=== PATIENT | female | born 1975 | race Caucasian/White ===

== ENCOUNTER 2023-06-21 12:33 | Emergency (ER) | payer OTHER, SELFPAY ==
[2023-06-21 12:42] VITALS: BP 120/89
[2023-06-21 13:02] LABS: Urine Albumin Trace (Neg - Trace); Urine Bilirubin 1+ (Negative); Urine Character Slightly Cloudy (Clear); Urine Color Yellow; Urine Glucose Negative (Negative); Urine Ketone Trace (Negative); Urine Leukocyte Negative (Negative); Urine Nitrite Negative (Negative); Urine Occult Blood Negative (Negative); Urine Urobilinogen Negative (Neg - 1+)
--- NOTE | 2023-06-21 13:26 | ED.GENMED ---
History of Present Illness
<Trina Walker PA-C - Last Filed: 06/22/23 16:52>
General
Chief Complaint: Flank Pain
Source: patient
Exam Limitations: none
Time Seen by Provider: 06/21/23 12:59
Nursing documentation reviewed up to this point in time: agreed with
Travel History
Have you had any contact with someone who has COVID-19?: No
Do you have any symptoms of coronavirus? Fever > 100 degrees, chills, cough, shortness of breath, sore throat, loss of taste or smell, muscle aches, or headache?: No
History of Present Illness
History of Present Illness:
Patient is a 47-year-old female with history of horseshoe kidney, kidney stones, diverticulitis, iron deficiency anemia presenting for evaluation of left lower back pain. Patient states symptoms have been present for the past few weeks with acute
worsening a few days ago. She describes pain as a constant pain in the left lower back without any radiation to abdomen or down leg. She is unsure if this may be related to kidney stone. She denies any fever, chills, urinary symptoms. She denies
any abdominal pain or vomiting. She denies any recent trauma or inciting injury.
She does, however, report intermittent chest discomfort and some lightheadedness a few days ago�which is since resolved. She denies any shortness of breath or tearing back pain.
Patient denies any numbness/tingling in lower extremities. She is denies any bowel or bladder incontinence.
Past History
<Trina Walker PA-C - Last Filed: 06/22/23 16:52>
Past History
ED Past Medical History: GERD and Other (Horseshoe kidney, IBS, kidney stones, Diverticulitis, Ulcers, Hiatel hernia)
ED Past Surgical History: Tonsilectomy and Urological
Social History
Tobacco: Non-smoker
Personal:
Living: with family
Employment: Employed
Review of Systems
<Trina Walker PA-C - Last Filed: 06/22/23 16:52>
Review of Systems
Allergies reviewed?: Yes
All Other Systems: ROS reviewed and negative except as documented in HPI and ROS
Phy Exam
<Trina Walker PA-C - Last Filed: 06/22/23 16:52>
Physical Exam
Physical Exam:
Vitals: Patient's vital signs are stable
General: Patient is well appearing, no acute distress
Skin: Warm and dry, no rashes or lesions
Head: Normocephalic, atraumatic
Eyes: Sclera nonicteric. EOMs intact. No nystagmus.
Cardiac: Regular rate and rhythm, no murmurs; no reproducible chest wall tenderness.
Pulm: Normal respiratory effort, no wheezes, rales, rhonchi heard on exam.
Abdomen: Abdomen soft, nontender in all 4 quadrants, no rebound tenderness or guarding, no CVA tenderness
Back: No reproducible point tenderness in lower back, no cervical spine or midline spinal tenderness, negative straight leg raise bilaterally
Extremities: No evidence of cyanosis or edema
Neuro: AAOx3. CN II-XII intact. No focal neurologic deficits.
Psychiatric: Normal affect.
Course
<Trina Walker PA-C - Last Filed: 06/22/23 16:52>
Orders/Labs/Results
Orders:
Orders
06/21/23 12:45
ECG [Electrocardiogram (*1)] Urgent
Reason for Study: Chest Pain
06/21/23 12:46
EKG- Treatment ONCE
06/21/23 12:50
Urinalysis Reflex To Culture Urgent
Date Specimen was Collected: 06/21/23
Time Specimen was Collected: 12:46
06/21/23 13:26
0.9% Sodium Chloride 1000 ml [Nss] 1,000 ml IV BOLUS
Ketorolac [Toradol] 15 mg IV NOW STA
06/21/23 13:27
Test Result ONCE
06/21/23 13:41
CT Abd/pel Without Iv Or Oral Urgent
Comment:
Reason For Exam: Left lower back pain, hx kidney stones / diverticu
06/21/23 13:49
HYDROmorphone [Dilaudid] 0.5 mg IV NOW STA
06/21/23 13:52
Complete Blood Count/With Diff Urgent
Comprehensive Metabolic Panel Urgent
HCG, Serum Qualitative Screen Urgent
Abnormal Lab Results
06/21/23 06/21/23
12:50 13:52
Hgb 9.8 L g/dL
(12.0-16.0)
Hct 31.6 L %
(37.0-47.0)
MCV 74.5 L fL
(81.0-99.0)
MCH 23.1 L pg
(27.0-31.0)
MCHC 31.0 L g/dL
(33.0-37.0)
RDW 15.3 H %
(11.5-14.5)
Urine Ketones Trace A
(Negative)
Urine Bilirubin 1+ A
(Negative)
06/21/23 13:52
06/21/23 13:52
Vital Signs
Initial and Last Documented VS:
Initial Vital Signs
Temp Pulse Resp BP Pulse Ox
98.2 F 99 18 120/89 99
06/21/23 12:42 06/21/23 12:42 06/21/23 12:42 06/21/23 12:42 06/21/23 12:42
Last Documented Vital Signs
Temp Pulse Resp BP Pulse Ox
98.2 F 99 18 120/89 99
06/21/23 12:42 06/21/23 12:42 06/21/23 12:42 06/21/23 12:42 06/21/23 12:42
<Durga Maza, DO - Last Filed: 06/21/23 14:20>
Orders/Labs/Results
Orders:
Orders
06/21/23 12:45
ECG [Electrocardiogram (*1)] Urgent
Reason for Study: Chest Pain
06/21/23 12:46
EKG- Treatment ONCE
06/21/23 12:50
Urinalysis Reflex To Culture Urgent
Date Specimen was Collected: 06/21/23
Time Specimen was Collected: 12:46
06/21/23 13:26
0.9% Sodium Chloride 1000 ml [Nss] 1,000 ml IV BOLUS
Ketorolac [Toradol] 15 mg IV NOW STA
06/21/23 13:27
Test Result ONCE
06/21/23 13:41
CT Abd/pel Without Iv Or Oral Urgent
Comment:
Reason For Exam: Left lower back pain, hx kidney stones / diverticu
06/21/23 13:49
HYDROmorphone [Dilaudid] 0.5 mg IV NOW STA
06/21/23 13:52
Complete Blood Count/With Diff Urgent
Comprehensive Metabolic Panel Urgent
HCG, Serum Qualitative Screen Urgent
Abnormal Lab Results
06/21/23 06/21/23
12:50 13:52
Hgb 9.8 L g/dL
(12.0-16.0)
Hct 31.6 L %
(37.0-47.0)
MCV 74.5 L fL
(81.0-99.0)
MCH 23.1 L pg
(27.0-31.0)
MCHC 31.0 L g/dL
(33.0-37.0)
RDW 15.3 H %
(11.5-14.5)
Urine Ketones Trace A
(Negative)
Urine Bilirubin 1+ A
(Negative)
06/21/23 13:52
06/21/23 13:52
Vital Signs
Initial and Last Documented VS:
Initial Vital Signs
Temp Pulse Resp BP Pulse Ox
98.2 F 99 18 120/89 99
06/21/23 12:42 06/21/23 12:42 06/21/23 12:42 06/21/23 12:42 06/21/23 12:42
Last Documented Vital Signs
Temp Pulse Resp BP Pulse Ox
98.2 F 99 18 120/89 99
06/21/23 12:42 06/21/23 12:42 06/21/23 12:42 06/21/23 12:42 06/21/23 12:42
<Trina Walker PA-C - Last Filed: 06/22/23 16:52>
MDM/Problems Addressed
Differential Diagnosis Includes:
Not limited to: Muscular strain, muscular spasm, nerve impingement, kidney stone, diverticulitis, pyelonephritis, UTI, zoster
MDM/Problems Addressed:
47 year old female with history as documented presented with left lower back pain worsening over the past few days. No associated fever or urinary symptoms. No recent trauma or injury. Vitals stable. Exam as above. Abdomen soft and nontender. There
is no evidence of rash across lower back. No reproducible point tenderness or CVA tenderness. Negative straight leg bilaterally. Will check labs, UA, non CT abdomen. Toradol and dilaudid for pain. Will reassess. EKG obtained in triage shows no signs
of ischemia. Very low suspicion for cardiac etiology.
Urine shows no signs of infection or blood in urine to further suggest kidney stone. Labs show findings consistent with iron efficiency anemia with hgb of 9.8. 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 No other lab
abnormalities.
CT shows no acute abnormalities. No evidence of obstructing kidney stone. There was found to be a cyst on the posterior left kidney, stable in size from prior studies. I do not suspect this to be contributing to patients symptoms. Patient will
follow-up with primary care for further monitoring.
Symptoms improved after pain medication. Workup here entirely negative. Stable for discharge with primary care follow-up- may require MRI of back for more in-depth evaluation. NSAIDS for pain. Return precautions discussed at length.Patient
comfortable with plan. All questions answered.
Chronic conditions affecting care:
History of kidney stones, horseshoe kidney
Acute Exacerbation and/or Progression of Chronic Illness:
N/A
<Trina Walker PA-C - Last Filed: 06/22/23 16:52>
*Radiology
Radiology exam reviewed: preliminary read by ED provider and radiology read reviewed
*Pulse Oximetry
Patient hypoxic: no
*EKG
Interpreted by ED Provider?: Yes
EKG Intrepretation Date: 06/21/23
Interpretation: normal
Comparison EKG: no comparison EKG present
Heart Rate: 85
Rate: normal
Rhythm: sinus
Ischemia: no ischemia
*Gun Repair Clerk Interpretation
Rate: Gun Repair Clerk- N/A
*Critical Care Note
Total Time (30-74mins, 75-104mins- exclusive of procedures): Not Applicable
Data Reviewed
Review of Other/Old Records Reveals: Labs, Records and Radiology Studies
Source: patient and previous hospital records
ED Attending Note
<Trina Walker PA-C - Last Filed: 06/22/23 16:52>
-
Portions of this chart may have been created with voice recognition software.� Occasional wrong word or��sound alike� substitutions may have occurred due to the inherent limitations of voice recognition software.
<Durga Maza DO - Last Filed: 06/21/23 14:20>
ED Attending Note
Patient seen and examined by attending physician: Yes
I performed the substantive portion of visit, reviewed & personally made and approve the management plan that is documented in note by myself or MASON.: Yes
ED Attending Note:
I have seen and evaluated the patient with a [id number] encounter. I have spoken to the advance practicer provider and involved in the medical history, the physical exam, medical decision making.
Evaluation and management service: agree unless noted differently below.
Results interpretation: agree unless noted differently below.
Focused HPI: 47-year-old female presenting with back and abdominal discomfort. She noted some chest discomfort a few days ago but that is since resolved. She is unsure if this could be kidney stone related.
Physical exam: Sitting in bed comfortably. Heart regular rate and rhythm. Abdomen soft and nontender
Medical Decision Making: Screening EKG nonischemic. Given her history of kidney stones, will obtain CT. Will provide pain medicine with Toradol and Dilaudid
Discharge Plan
Departure
Patient Disposition: Home (Routine Discharge)
Date of Disposition: 06/21/23
Time of Disposition: 15:27
Patient with high blood pressure during this ER visit?: No
Covid-19: Not Applicable
Discharge Problem:
Low back pain
Instructions: Low Back Pain (DC)
Prescriptions:
No Action
esomeprazole magnesium [Nexium] 20 MG capsule,delayed release(DR/EC)
20 mg PO DAILY
prednisone 20 MG tablet
40 mg PO DAILY Qty: 8 0RF
levofloxacin 500 mg tablet
500 mg PO DAILY 10 Days Qty: 10 0RF
metronidazole [Flagyl] 375 mg capsule
375 mg PO BID 14 Days Qty: 28 0RF
hydrocodone-acetaminophen 5-325 mg tablet
1 tab PO TID PRN (Reason: pain) Qty: 10 0RF
Referrals:
Urban Ojeda DO [Family Provider] - Follow up in 2-3 days
Activity Restrictions/Additional Instructions:
- Return to the emergency department with any high fevers, severe abdominal pain, intractable nausea/vomiting, worsening low back pain, weakness/numbness in lower extremities, bowel/bladder incontinence, chest pain, shortness of breath, worsening in
current symptoms, or any other concerns
-As discussed�there was no evidence of a kidney stone on your CT scan performed today. They did note a cyst on your left kidney which appears stable in size. You should continue to have this monitored.
-As discussed�your hemoglobin was 9.8 today. You should continue to have this monitored with your primary care provider to ensure values are trending upwards.
-You can take Motrin and/or Tylenol as needed for discomfort. Apply ice/heat as needed. Stay well-hydrated.
-There may be some findings of constipation seen on your CT scan today. You may take MiraLAX daily over the next 1 to 2 weeks.
-You should follow-up with your family doctor in a few days for further evaluation/management. You may require further imaging with an MRI.
Interventions
Interventions:
*Risk Screen - Suicide Last Done: 06/21/23 12:42
*General Assessment Last Done: 06/21/23 12:42
*Neglect/Abuse Screening Last Done: 06/21/23 12:42
*Nursing Disposition Last Done: 06/21/23 16:14
KO-Ulqigg-Dctinisagi Assessment Last Done: 06/21/23 15:51
ED-Female Genitourinary Assessment Last Done: 06/21/23 15:51
Discharge Date and Time
Discharge Date/Time: 06/21/23 16:14
Print Language: AMERICAN
[2023-06-21] MEDS: NSS 1000 IV (13:52)
[2023-06-21] MEDS: TORADOL 15 MG IV (13:54)
[2023-06-21] MEDS: DILAUDID 0.5 MG IV (13:54)
[2023-06-21 14:01] LABS: % Basophils 0.4 % (0-2); % Eosinophils 1.3 % (0-6); % Immature Granulocytes 0.1 % (0-0.5); % Lymphocytes 30.4 % (20.5-51.1); % Neutrophils 60.8 % (42.2-75.2); Absolute Eosinophils 0.1 10^3/uL (0-0.7); Absolute Lymphocytes 2.1 10^3/uL (1.2-3.4); Absolute Monocytes 0.5 10^3/uL (0.1-0.6); Absolute Neutrophils 4.3 10^3/uL (1.4-6.5); Hematocrit 31.6 % (37.0-47.0); Hemoglobin 9.8 g/dL (12.0-16.0); Mean Corpuscular Hgb 23.1 pg (27.0-31.0); Mean Corpuscular Volume 74.5 fL (81.0-99.0); Nucleated Red Blood Cells % 0 %; Platelet Count 386 10^3/uL (130-400); Red Blood Cell Count 4.24 10^6/uL (4.20-5.40); Red Cell Dist. Width 15.3 % (11.5-14.5); White Blood Cell Count 7.1 10^3/uL (4.8-10.8)
[2023-06-21 14:15] LABS: HCG, Serum Qualitative Screen Negative
[2023-06-21 14:17] LABS: ALT (SGPT) 13 U/L (0-35); AST (SGOT) 21 U/L (14-36); Albumin 3.9 g/dl (3.5-5.0); Alkaline Phosphatase 93 U/L (38-126); Blood Urea Nitrogen 15 mg/dl (7-17); Carbon Dioxide 28 mmol/L (22-30); Chloride 106 mmol/L (98-107); Glucose 99 mg/dl (70-99); Sodium 135 mmol/L (135-145); Total Bilirubin 0.5 mg/dl (0.2-1.3); Total Protein 6.8 g/dl (6.3-8.2); eGFR > 60.00
== END 2023-06-21 16:14 | disposition home or self-care (01) ==
LOC: EMR 12:33
PROVIDERS: Physician Assistant; EMERGENCY PHYSICIAN Student in an Organized Health Care Education/Training Program; FAMILY PHYSICIAN Family Medicine Geriatric Medicine
DX: M54.50 Low back pain, unspecified (principal); D50.9 Iron deficiency anemia, unspecified; Q63.1 Lobulated, fused and horseshoe kidney; K21.9 Gastro-esophageal reflux disease without esophagitis; K58.9 Irritable bowel syndrome, unspecified
CPT/HCPCS: 99284; 96374; 96375; 96361; 74176; 80053; 81003; 84703; 85025; 93005

== ENCOUNTER 2024-08-14 06:28 | Day surgery (SDC) | payer OTHER, SELFPAY | END 2024-08-14 10:53 | disposition home or self-care (01) | LOC: GI 06:28 | PROVIDERS: ATTENDING PHYSICIAN Internal Medicine Gastroenterology | DX: Z12.11 Encounter for screening for malignant neoplasm of colon (principal); K57.30 Diverticulosis of large intestine without perforation or abscess without bleeding; K62.89 Other specified diseases of anus and rectum; R12 Heartburn; K22.2 Esophageal obstruction; K44.9 Diaphragmatic hernia without obstruction or gangrene; K31.89 Other diseases of stomach and duodenum; K31.7 Polyp of stomach and duodenum; Z86.0100 Personal history of colon polyps, unspecified | CPT/HCPCS: 43239; G0105; 88305 ==